=== PATIENT | male | born 1940 | race Caucasian/White ===

== ENCOUNTER 2016-12-10 15:24 | Emergency (ER) | payer OTHER ==
[2016-12-10] MEDS ORDERED: Oxymetazoline HCl 0.05% ( 15 ML ) ONE (15:32)
== END 2016-12-10 16:02 | disposition home or self-care (01) ==
LOC: BURERS 15:24
DX: R04.0 Epistaxis (principal); I10 Essential (primary) hypertension; D64.9 Anemia, unspecified; E11.9 Type 2 diabetes mellitus without complications; E78.5 Hyperlipidemia, unspecified; Z87.891 Personal history of nicotine dependence
CPT/HCPCS: 30901

== ENCOUNTER 2016-12-11 12:10 | Emergency (ER) | payer OTHER | END 2016-12-11 12:32 | disposition home or self-care (01) | LOC: BURERS 12:10 | DX: Z51.89 Encounter for other specified aftercare (principal); E11.9 Type 2 diabetes mellitus without complications; E78.5 Hyperlipidemia, unspecified; D64.9 Anemia, unspecified; Z87.891 Personal history of nicotine dependence; Z86.73 Personal history of transient ischemic attack (TIA), and cerebral infarction without residual deficits | CPT/HCPCS: 99282 ==

== ENCOUNTER 2017-11-15 11:06 | Emergency (ER) | payer OTHER ==
[~2017-11-15 11:06] MED LIST: Iopamidol 370 76% 100 ML VIAL ONE
[2017-11-15 12:16] LABS: Hemoglobin 8.3 g/dL (14.0-18.0); Mean Corpuscular HGB CONC 33.2 g/dL (32.0-36.0); Mean Corpuscular Volume 81.2 fL (78.0-98.0); Mean Platelet Volume 13.2 fL (7.4-10.4); Platelet Count 29 thou/uL (130-400); RBC Distribution Width 20.1 % (11.5-14.5); Red Blood Cell (RBC) Count 3.08 mill/uL (4.70-6.10); White Blood Cell (WBC) Count 2.3 thou/uL (4.8-10.8)
[2017-11-15 12:21] LABS: Prothrombin Time 13.5 SEC (12.0-14.7)
[2017-11-15 12:26] LABS: ALT (SGPT) 7 U/L (8-55); AST (SGOT) 11 U/L (5-34); Albumin 3.9 g/dL (3.4-4.8); Alkaline Phosphatase 88 U/L (40-150); Anion Gap 13 mmol/L (10-20); BUN (Urea Nitrogen) 16 mg/dL (8.4-25.7); Bilirubin, Total 0.7 mg/dL (0.2-1.2); Calc. Creatinine Clearance 0 mL/min (70-130); Calcium 9.1 mg/dL (7.8-10.44); Carbon Dioxide 23 mmol/L (23-31); Chloride 109 mmol/L (98-107); Estimated GFR-MDRD 51; Globulin 3.6 g/dL (2.4-3.5); Glucose 101 mg/dL (83-110); Potassium 4.3 mmol/L (3.5-5.1); Protein, Total 7.5 g/dL (5.8-8.1); Sodium 141 mmol/L (136-145)
[2017-11-15 12:27] LABS: CKMB 0.8 ng/mL (0-6.6); Troponin I Less than 0.010 ng/mL (< 0.028)
[2017-11-15 12:41] LABS: Lymphocytes 68 % (21-51); MDiff Complete? YES; Monocytes 16 % (0-10); Neutrophil 15 % (42-75); PLT Morphology Comment Appears Decreased; RBC Morphology Normal
--- NOTE | 2017-11-15 13:09 | CT ---
CT BRAIN WITHOUT CONTRAST: Date: 11-15-17 Provided Clinical History: Left sided weakness. FINDINGS: No comparison. The ventricular system appears normal in size and morphology. There is no evidence for intracranial hemorrhage or mass effect. Remote lacunar infarction involves the right thalamus. Micro vascular ischemic change involves the left external capsule. The extracranial soft tissues and osseou s structures demonstrate no acute findings. IMPRESSION: No evidence for intracranial hemorrhage or mass effect. Findings communicated with Emergency Departme nt physician at 11:43 a.m. 11-15-17. Code CR POS: KIERAN
--- NOTE | 2017-11-19 16:26 | CT ---
CT ANGIOGRAM OF HEAD CT ANGIOGRAM OF NECK: Date: 11/15/17 HISTORY: Left-sided weakness. COMPARISON: None. TECHNIQUE: CT angiogram of head and neck performed in the axial plane. Three-dimensional reformatted images are submitted for interpretation. FINDINGS: Postcontrast head CT demonstrates preservation of cortical perry-white matter differentiation. Bilateral ocular lenses are appropriately located. Both globes are intact. Retrobulbar fat is preserv ed. Symmetric attenuation of the optic nerves and ocular rectus muscles. Adequate aeration of the visualized paranasal sinuses. Mild opacification of the inferior right masto id air cells. Aerodigestive tract is patent. No mucosal abnormality. Visualized fatty raphe of the tongue is preser clemencia. Epiglottis has a normal caliber. Preepiglottic fat is preserved. There is no prevertebral soft t issue swelling. Varying degrees of central canal stenosis and foraminal narrowing on the basis of deg enerative change. Cervical spine vertebral body height is maintained. There is no fracture. Symmetric attenuation of the submandibular and parotid glands. Symmetric attenuation of the sternocleidomastoid muscles. Thyroid gland is hypodense. Upper mediastinum and lung apices are unremarkable. CT ANGIOGRAM NECK: There is a subtle focal outpouching of the lateral aspect of the aortic arch of uncertain significanc e. Right Carotid: The right carotid artery origin has appropriate enhancement and luminal diameter. The right common carotid artery, carotid bifurcation, and internal carotid artery have appropriate enhan cement and luminal diameter. No significant stenosis based upon NASCET criteria. Left Carotid: The left carotid artery origin has appropriate enhancement and luminal diameter. The l eft common carotid artery, carotid bifurcation, and internal carotid artery have appropriate enhancem ent and luminal diameter. No significant stenosis based upon NASCET criteria. There is mild short seg ment stenosis involving the proximal left internal carotid artery. Cervical vertebral arteries are patent throughout their course in the neck. Visualized subclavian art eries are unremarkable. CT ANGIOGRAM HEAD: There is symmetric enhancement and luminal diameter of the distal cervical and intracranial internal carotid arteries. There is atherosclerosis of both cavernous and paraclinoid segments without signifi cant stenosis. Anterior Circulation: Symmetric enhancement and luminal diameter of the A1 segments. Proximal A2 seg ments are unremarkable. There is short segment moderate stenosis involving the proximal right M1 segm ent. The remainder of the right M1 segment is unremarkable. Left M1 segment has appropriate enhanceme nt and luminal diameter. Proximal MCA branches are symmetric. Posterior Circulation: Both PICA artery origins are unremarkable. Both vertebral arteries supply a n ormal appearing basilar artery. There is appropriate enhancement and luminal diameter of the basilar artery. Both P1 segments have appropriate enhancement and luminal diameter. IMPRESSION: 1. Short segment moderate stenosis involving the proximal right M1 segment. 2. No significant stenosis based upon NASCET criteria in terms of the cervical carotid arteries.
== END 2017-11-15 13:05 | disposition short-term general hospital (02) ==
LOC: BURERS 11:06
DX: I63.9 Cerebral infarction, unspecified (principal); E11.9 Type 2 diabetes mellitus without complications; E03.9 Hypothyroidism, unspecified; E78.5 Hyperlipidemia, unspecified; I10 Essential (primary) hypertension; F43.10 Post-traumatic stress disorder, unspecified; Z87.891 Personal history of nicotine dependence; Z79.899 Other long term (current) drug therapy
CPT/HCPCS: 70450; 70496; 70498; 80053; 82553; 83690; 84484; 85025; 85060; 85610; A4216

== ENCOUNTER 2018-05-14 14:49 | Emergency (ER) | payer OTHER ==
[2018-05-14] MEDS ORDERED: Oxymetazoline HCl 0.05% ( 15 ML ) ONE (14:57)
[2018-05-14] MEDS ORDERED: Ondansetron ODT 4 MG TAB ONE (15:11)
[2018-05-14 15:47] LABS: INR-International Normal Ratio 1.1; PTT 33.4 SEC (22.9-36.1); Prothrombin Time 14.6 SEC (12.0-14.7)
[2018-05-14 15:51] LABS: ALT (SGPT) 11 U/L (8-55); AST (SGOT) 17 U/L (5-34); Albumin 4.1 g/dL (3.4-4.8); Alkaline Phosphatase 98 U/L (40-150); Anion Gap 13 mmol/L (10-20); BUN (Urea Nitrogen) 19 mg/dL (8.4-25.7); Calc. Creatinine Clearance 0 mL/min (70-130); Calcium 9.4 mg/dL (7.8-10.44); Carbon Dioxide 25 mmol/L (23-31); Chloride 107 mmol/L (98-107); Estimated GFR-MDRD 56; Globulin 3.6 g/dL (2.4-3.5); Glucose 108 mg/dL (83-110); Potassium 4.3 mmol/L (3.5-5.1); Protein, Total 7.7 g/dL (5.8-8.1); Sodium 141 mmol/L (136-145)
[2018-05-14 15:52] LABS: Hemoglobin 10.1 g/dL (14.0-18.0); Mean Corpuscular HGB CONC 31.8 g/dL (32.0-36.0); Mean Corpuscular Hemoglobin 27.3 pg (27.0-31.0); Mean Corpuscular Volume 85.9 fL (78.0-98.0); Mean Platelet Volume 6.3 fL (7.4-10.4); Platelet Count 43 thou/uL (130-400); RBC Distribution Width 17.3 % (11.5-14.5); Red Blood Cell (RBC) Count 3.71 mill/uL (4.70-6.10); White Blood Cell (WBC) Count 1.4 thou/uL (4.8-10.8)
[2018-05-14 16:04] LABS: Band 1 % (5-11); Lymphocytes 60 % (21-51); MDiff Complete? YES; Metamyelocyte 4 % (0-0); Monocytes 7 % (0-10); Neutrophil 16 % (42-75); Reactive Lymphocytes 12 % (0-10); Reflex for Review?? YES
[2018-05-14 16:05] LABS: Platelet Morphology Comment Appears Decreased
[2018-05-14] MEDS ORDERED: Cephalexin 500 MG CAP ONE (16:05)
== END 2018-05-14 16:30 | disposition home or self-care (01) ==
LOC: BURERS 14:49
DX: R04.0 Epistaxis (principal); C92.00 Acute myeloblastic leukemia, not having achieved remission; I10 Essential (primary) hypertension; E78.5 Hyperlipidemia, unspecified; E03.9 Hypothyroidism, unspecified; E11.40 Type 2 diabetes mellitus with diabetic neuropathy, unspecified; F43.10 Post-traumatic stress disorder, unspecified; F32.9 Major depressive disorder, single episode, unspecified; Z87.891 Personal history of nicotine dependence; Z86.73 Personal history of transient ischemic attack (TIA), and cerebral infarction without residual deficits; Z79.899 Other long term (current) drug therapy
CPT/HCPCS: 36415; 80053; 85025; 85060; 85610; 85730; 99283; Q0162

== ENCOUNTER 2018-07-29 12:35 | Emergency (ER) | payer OTHER ==
[2018-07-29] MEDS ORDERED: Clindamycin 150 MG CAP ONE (13:16)
[2018-07-29] MEDS ORDERED: Bacitracin Zinc 1 Packet ONE (13:21)
== END 2018-07-29 13:24 | disposition home or self-care (01) ==
LOC: BURERS 12:35
DX: L03.113 Cellulitis of right upper limb (principal); E03.9 Hypothyroidism, unspecified; D64.9 Anemia, unspecified; E78.5 Hyperlipidemia, unspecified; E11.40 Type 2 diabetes mellitus with diabetic neuropathy, unspecified; I10 Essential (primary) hypertension; G20 Parkinson's disease; Z87.891 Personal history of nicotine dependence; F43.10 Post-traumatic stress disorder, unspecified; F32.9 Major depressive disorder, single episode, unspecified; Z79.899 Other long term (current) drug therapy; Z79.51 Long term (current) use of inhaled steroids; Z86.73 Personal history of transient ischemic attack (TIA), and cerebral infarction without residual deficits

== ENCOUNTER 2018-07-31 07:23 | Emergency (ER) | payer OTHER ==
[2018-07-31 09:04] LABS: Hemoglobin 7.5 g/dL (14.0-18.0); Mean Corpuscular Volume 87.5 fL (78.0-98.0); Mean Platelet Volume 11.5 fL (7.4-10.4); RBC Distribution Width 19.3 % (11.5-14.5); Red Blood Cell (RBC) Count 2.69 mill/uL (4.70-6.10); White Blood Cell (WBC) Count 2.5 thou/uL (4.8-10.8)
[2018-07-31 09:06] LABS: Platelet Count 11 thou/uL (130-400)
[2018-07-31 09:09] LABS: Lymphocytes 88 % (21-51); MDiff Complete? YES; Neutrophil 9 % (42-75); Platelet Morphology Comment HX OF LEUKEMIA; Reactive Lymphocytes 3 % (0-10); Tear Drops SLIGHT = 2-5 cells (100X) (0-1/hpf)
== END 2018-07-31 12:00 | disposition home or self-care (01) ==
LOC: BURERS 07:23
DX: R04.0 Epistaxis (principal); E03.9 Hypothyroidism, unspecified; D64.9 Anemia, unspecified; E11.40 Type 2 diabetes mellitus with diabetic neuropathy, unspecified; G20 Parkinson's disease; F43.10 Post-traumatic stress disorder, unspecified; F32.9 Major depressive disorder, single episode, unspecified; Z87.891 Personal history of nicotine dependence; Z79.899 Other long term (current) drug therapy; Z79.51 Long term (current) use of inhaled steroids
CPT/HCPCS: 30903; 36415; 36416; 85025; 86850; 86900; 86901

== ENCOUNTER 2018-09-09 03:01 | Emergency (ER) | payer OTHER ==
[2018-09-09] MEDS ORDERED: Acetaminophen 650 MG Suppository ONE (03:09)
[2018-09-09 03:51] LABS: Anisocytosis SLIGHT = 6-15 cells (100X) (0-5/hpf); Hemoglobin 7.8 g/dL (14.0-18.0); Hypochromia SLIGHT = 6-15 cells (100X) (0-5/hpf); Large Platelets SLIGHT; Lymphocytes 77 % (21-51); MDiff Complete? YES; Mean Corpuscular HGB CONC 32.6 g/dL (32.0-36.0); Mean Corpuscular Hemoglobin 29.1 pg (27.0-31.0); Mean Corpuscular Volume 89.4 fL (78.0-98.0); Mean Platelet Volume 12.6 fL (7.4-10.4); Metamyelocyte 1 % (0-0); Monocytes 15 % (0-10); Neutrophil 2 % (42-75); Ovalocytes SLIGHT = 2-5 cells (100X) (0-1/hpf); Platelet Count 17 thou/uL (130-400); Platelet Morphology Comment Appears Decreased; RBC Distribution Width 18.4 % (11.5-14.5); Reactive Lymphocytes 3 % (0-10); Red Blood Cell (RBC) Count 2.66 mill/uL (4.70-6.10); Tear Drops SLIGHT = 2-5 cells (100X) (0-1/hpf)
[2018-09-09 04:00] LABS: White Blood Cell (WBC) Count 12.2 thou/uL (4.8-10.8)
[2018-09-09 04:04] LABS: CKMB 1.4 ng/mL (0-6.6)
[2018-09-09 05:29] LABS: ALT (SGPT) 8 U/L (8-55); AST (SGOT) 22 U/L (5-34); Albumin 3.6 g/dL (3.4-4.8); Alkaline Phosphatase 102 U/L (40-150); Anion Gap 22 mmol/L (10-20); BUN (Urea Nitrogen) 23 mg/dL (8.4-25.7); Bilirubin, Total 1.4 mg/dL (0.2-1.2); Calc. Creatinine Clearance 0 mL/min (70-130); Calcium 9.2 mg/dL (7.8-10.44); Carbon Dioxide 14 mmol/L (23-31); Chloride 104 mmol/L (98-107); Estimated GFR-MDRD 22; Globulin 3.3 g/dL (2.4-3.5); Glucose 154 mg/dL (83-110); Potassium 3.4 mmol/L (3.5-5.1); Protein, Total 6.9 g/dL (5.8-8.1); Sodium 137 mmol/L (136-145)
--- NOTE | 2018-09-09 06:48 | RAD ---
PORTABLE CHEST: Date: 09/09/18 An AP portable film at 0311 hours is presented with no prior films available for comparison. The patient is turned to the side. There appears to be an infiltrate in the right lung base. This jered uld be investigated further. The left lung is relatively clear. There is no congestive change. No ple ural effusions are present. Median sternotomy sutures are present from prior surgery. The cardiac siz e is within normal limits for age, positioning, and AP projection. IMPRESSION: Presumed right basilar infiltrate. Follow-up films are needed. CODE T. POS: HOME
== END 2018-09-09 06:45 | disposition expired ==
LOC: BURERS 03:01
DX: A41.9 Sepsis, unspecified organism (principal); R57.0 Cardiogenic shock; C94.80 Other specified leukemias not having achieved remission; E03.9 Hypothyroidism, unspecified; Z86.73 Personal history of transient ischemic attack (TIA), and cerebral infarction without residual deficits; D64.9 Anemia, unspecified; E11.9 Type 2 diabetes mellitus without complications; E78.5 Hyperlipidemia, unspecified; E11.40 Type 2 diabetes mellitus with diabetic neuropathy, unspecified; I10 Essential (primary) hypertension; G20 Parkinson's disease; Z87.891 Personal history of nicotine dependence; Z79.899 Other long term (current) drug therapy
CPT/HCPCS: 36415; 71045; 80053; 82553; 83880; 84484; 85025; 93005; 96365; J1956